=== PATIENT | female | born 1985 | race Caucasian/White ===

== ENCOUNTER → 2021-08-19 | Outpatient (CLI) | payer BC ==
--- NOTE | 2021-08-22 12:11 | MM ---
Reason for exam: screening (asymptomatic). Baseline mammogram. History: Family history of breast cancer in paternal aunt and breast cancer in 2 maternal aunts. Physical Findings: A clinical breast exam by your physician is recommended on an annual basis and results should be correlated with mammographic findings. MG 3D Screening Mammo W/Cad Bilateral CC and MLO view(s) were taken. The breast tissue is heterogeneously dense. This may lower the sensitivity of mammography. There is no discrete abnormality. ASSESSMENT: Benign, BI-RAD 2 RECOMMENDATION: Routine screening mammogram of both breasts in 1 year.
== END | disposition home or self-care (01) ==
LOC: RADMAMWWP 10:40
PROVIDERS: ATTEND Pediatrics
DX: Z12.31 Encounter for screening mammogram for malignant neoplasm of breast (principal); Z80.3 Family history of malignant neoplasm of breast
CPT/HCPCS: 77063; 77067

== ENCOUNTER → 2023-10-11 | Outpatient (CLI) | payer BC ==
--- NOTE | 2023-10-15 13:13 | MM ---
Reason for Exam: Screening (asymptomatic). Last mammogram was performed 2 year(s) and 2 month(s) ago. Patient History: Menarche at age 11. First Full-Term at age 22. Premenopausal. Paternal aunt had breast cancer. Maternal aunt had breast cancer. Maternal aunt had breast cancer. Last menstrual period: 09/20/2023 Risk Values: Piedad 5 year model risk: 0.4%. NCI Lifetime model risk: 10.0%. Prior Study Comparison: 08/19/2021 Bilateral Screening Mammogram, [facility]. Tissue Density: There are scattered areas of fibroglandular density. Findings: Analyzed By CAD. Right breast: There is no suspicious group of microcalcifications or new suspicious mass. Left breast: There is no suspicious group of microcalcifications or new suspicious mass. Overall Assessment: Negative, BI-RAD 1 Management: Screening Mammogram of both breasts in [address] [facility] will attempt to contact patient to return for supplemental views and ultrasound if indicated. Patient should continue monthly self-breast exams. A clinical breast exam by your physician is recommended on an annual basis. This exam should not preclude additional follow-up of suspicious palpable abnormalities. Note on Piedad scores and lifetime risk: 1. A Piedad score greater than 3% is considered moderate risk. If this is the case, consider specialist referral to assess eligibility for a risk reducing agent. 2. If overall lifetime risk for the development of breast cancer is 20% or higher, the patient may qualify for future screening with alternating mammogram and breast MRI. Electronically signed and approved by: Tomasz Shepherd DO
== END | disposition home or self-care (01) ==
LOC: RADMAMWWP 10:07
PROVIDERS: ATTEND Pediatrics
DX: Z12.31 Encounter for screening mammogram for malignant neoplasm of breast (principal); Z80.3 Family history of malignant neoplasm of breast
CPT/HCPCS: 77067

== ENCOUNTER → 2024-11-20 | Outpatient (CLI) | payer BC ==
--- NOTE | 2024-11-20 14:59 | US ---
EXAMINATION TYPE: US OB >= 14 wk fetus DATE OF EXAM: 11/20/2024 COMPARISON: None CLINICAL INDICATION: Female, 39 years old with history of Z34.90 ENCNTR FOR SUPRVSN OF NORMAL PREGNAN CY, UNS; Dates TECHNIQUE: Transabdominal (TA) FINDINGS: GESTATIONAL AGE / DATING Physician Established: Not yet established Dates by LMP: LMP unknown Dates by First Scan: No previous this is first scan Dates by Current Scan: (17 weeks/6 days) EDC: 04/24/2025 SURVEY IUP: Single PLACENTA: Posterior PREVIA: Complete GANESH: 12.8 cm Normal CERVICAL LENGTH (transabdominal: norm > 3.0cm): 4.1 cm BIOMETRY PRESENTATION: Breech LIE: Longitudinal BPD: 3.86 cm 17 weeks / 5 days HC: 14.39 cm 17 weeks / 4 days AC: 12.65 cm 18 weeks / 2 days FL: 2.60 cm 17 weeks / 6 days ESTIMATED WEIGHT IN GRAMS: 220.51 grams ESTIMATED WEIGHT IN LBS/OZ: 0 lbs. 8 oz. HC/AC: 1.14cm Normal FL/AC: 20.57 cm Normal HEART RATE: 158 bpm RHYTHM: Normal IMPRESSION: Single live intrauterine gestation with estimated gestational age of 17 weeks 6 days with estimated d ue date of 04/24/2025. [facility], , 11/20/2024 2:57 PM
== END | disposition home or self-care (01) ==
LOC: RADUSWWP 14:11
DX: Z34.90 Encounter for supervision of normal pregnancy, unspecified, unspecified trimester (principal); Z3A.17 17 weeks gestation of pregnancy
CPT/HCPCS: 76805